=== PATIENT | male | born 1960 | race Caucasian/White ===

== ENCOUNTER 2025-06-13 17:38 | Emergency (ER) | payer MEDICARE, BC ==
[2025-06-13 18:36] LABS: BASOPHILS ABSOLUTE AUTO 0.07 K/uL (0.00-0.10); BASOPHILS PERCENT AUTO 0.7 % (0.1-1.3); EOSINOPHILS ABSOLUTE AUTO 0.17 K/uL (0.00-0.40); EOSINOPHILS PERCENT AUTO 1.8 % (0.0-5.4); IMMATURE GRAN ABSOLUTE AUTO 0.06 K/uL (0.00-0.23); IMMATURE GRAN PERCENT AUTO 0.6 % (0.0-0.7); LYMPHOCYTES ABSOLUTE AUTO 1.91 K/uL (0.8-3.3); LYMPHOCYTES PERCENT AUTO 20.4 % (11.4-47.7); MONOCYTES ABSOLUTE AUTO 0.68 K/uL (0.20-0.90); MONOCYTES PERCENT AUTO 7.3 % (3.3-12.6); NEUTROPHILS ABSOLUTE AUTO 6.47 K/uL (1.0-7.6); NEUTROPHILS PERCENT AUTO 69.2 % (40.0-78.1); PLATELET COUNT,PLT 241 K/uL (130-375); RED BLOOD CELL COUNT 4.82 M/uL (4.14-5.76); WHITE BLOOD CELL COUNT,WBC 9.4 K/uL (3.2-11.0)
[2025-06-13 19:01] LABS: A/G RATIO 1.1 (1.2-2.2); ALANINE AMINOTRANSFERASE,ALT 70 U/L (12-78); ASPARTATE AMNIOTRANSFERASE,AST 37 U/L (15-37); BILIRUBIN TOTAL 0.2 mg/dL (0.2-1.0); BLOOD UREA NITROGEN,BUN 19 mg/dL (7-18); CARBON DIOXIDE,CO2 27 mmol/L (21-32); CHLORIDE,CL 103 mmol/L (100-108); CREATININE 1.3 mg/dL (0.8-1.3); ESTIMATED GFR 60 mL/min (>60); GLUCOSE RANDOM 155 mg/dL (74-106); POTASSIUM,K 3.7 mmol/L (3.6-5.2); PROTEIN TOTAL,TP 7.3 g/dL (6.4-8.2); SODIUM,NA 140 mmol/L (140-148); TROPONIN I HIGH SENSITIVITY 5.0 pg/mL (<=60.3)
== END 2025-06-13 21:20 | disposition home or self-care (01) ==
LOC: JP.ED 17:38
DX: R07.89 Other chest pain (principal); I10 Essential (primary) hypertension; E78.00 Pure hypercholesterolemia, unspecified; Z88.2 Allergy status to sulfonamides; Z79.82 Long term (current) use of aspirin; Z79.899 Other long term (current) drug therapy
CPT/HCPCS: 36415; 71045; 80053; 84484; 85025; 93005; 99284; A9270